=== PATIENT | male | born 1955 | race Caucasian/White ===

== ENCOUNTER 2021-06-15 06:14 | Day surgery (SDC) | payer MEDICARE ==
[2021-06-15] MEDS ORDERED: Lactated Ringers 1,000 ML IV SCH (06:30)
[2021-06-15] MEDS ORDERED: Lactated Ringers 1,000 ML IV ONE (07:03)
[2021-06-15] MEDS ORDERED: DIPRIVAN 200 MG/20 ML IV ONE ×2 (07:57→08:18)
[2021-06-15] MEDS ORDERED: Xylocaine-Mpf 2% 5 Ml Vial ONE (07:57)
[2021-06-15] MEDS ORDERED: Versed 2 MG/2 ML Injection ONE (08:01)
--- NOTE | 2021-06-15 09:05 | OP ---
SURGERY DATE/TIME: 06/15/2021 0800 PREOPERATIVE DIAGNOSIS: History of colon polyp many years ago, colonoscopy was normal eight years ago. The patient is here now for surveillance examination. POSTOPERATIVE DIAGNOSIS: Small sigmoid colon polyp. PROCEDURE: Colonoscopy with hot snare polypectomy. SURGEON: Dr. Caceres. ANESTHESIA: Medications given by anesthesia department. HISTORY: The patient is a 65-year-old white male patient now presenting for repeat evaluation. He had one previous polyp years ago. He has since that time had a normal colonoscopy eight years ago. The patient is felt the need to have endoscopic evaluation. Consent was obtained. DESCRIPTION OF PROCEDURE: He was placed in left lateral decubitus position. Digital rectal examination was performed and revealed normal anal sphincter tone, no masses and normal prostate. The flexible Olympus pediatric colonoscope was used to intubate the rectum. A view of the colon was developed sequentially to the cecum. In the sigmoid colon there was noted to be a polyp approximately 1 cm in size which was removed using hot polypectomy snare and retrieved for pathologic evaluation. No other mucosal lesions were encountered. The scope was removed from the patient who tolerated the procedure well and was sent back to OP recovery in good condition. The prep was noted to be good.
[2021-06-15 09:30] VITALS: O2SAT 97
[2021-06-15 09:33] VITALS: BP 130/78; PULSE 62
== END 2021-06-15 09:30 | disposition home or self-care (01) ==
LOC: SDC 06:14
PROVIDERS: ATTEND Family Medicine
DX: Z12.11 Encounter for screening for malignant neoplasm of colon (principal); Z09 Encounter for follow-up examination after completed treatment for conditions other than malignant neoplasm; Z86.010 Personal history of colon polyps; D12.5 Benign neoplasm of sigmoid colon
CPT/HCPCS: J2250; J2704

== ENCOUNTER 2022-05-09 11:22 | Emergency (ER) | payer MEDICARE ==
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
--- NOTE | 2022-05-09 12:11 | XRAY ---
Indication: Cough. Comparison: January 10, 2011 Portable chest again demonstrates normal heart and lungs. Bony thorax intact with mild degenerative changes. No new/acute findings.
[2022-05-09 12:40] LABS: Absolute Neutrophil Ct (ANC) 6.88 x10^3/uL (1.4-6.9); BASOPHIL % 0.3 % (0.0-0.4); Basophil (Absolute #) 0.03 x10^3/uL (0-0.4); Eosinophil (Absolute #) 0.09 x10^3/uL (0-0.5); Hematocrit 41.3 % (42-50); Hemoglobin 13.8 g/dL (12.5-18.0); IMMATURE GRAN # 0.05 x10^3u/L (0.00-0.03); IMMATURE GRAN % 0.6 % (0.00-0.4); Lymphocyte (Absolute #) 1.31 x10^3/uL (1.0-4.6); Lymphocytes % 14.5 % (24.0-44.0); Mean Cell Volume 83.1 fL (78-100); Mean Corpuscular Hemoglobin 27.8 pg (26-32); Mean Corpuscular Hgb Concent. 33.4 g/dL (32-36); Mean Platelet Volume 9.7 fL (7.5-11.0); Monocyte (Absolute #) 0.69 x10^3/uL (0.0-1.3); Monocytes % 7.6 % (0.0-12.0); Platelet Count 255 x10^3/uL (150-450); Red Blood Count 4.97 x10^6/uL (4.1-5.6); Red Cell Distribution Width 13.2 % (11.5-14.0); White Blood Count 9.1 x10^3/uL (4.0-10.5)
[2022-05-09 12:52] LABS: Group A Strep NOT DETECTED (NEGATIVE)
[2022-05-09 12:56] LABS: ALBUMIN 4.3 g/dL (3.5-5.0); ANION GAP 12.6 MEQ/L (5-15); BILIRUBIN,TOTAL 0.6 mg/dL (0.2-1.3); Calcium 8.9 mg/dL (8.4-10.2); Creatinine 1 1.84 mg/dL (0.66-1.25); EST GLOMERULAR FILTRATION RATE 39.3 ML/MIN; Potassium 4.1 mmol/L (3.5-5.1); Total Protein 7.9 g/dL (6.3-8.2)
[2022-05-09 13:05] LABS: INFLUENZA A NEGATIVE (NEGATIVE); INFLUENZA B NEGATIVE (NEGATIVE); RESPIRATORY SYNCTIAL VIRUS NEGATIVE (Negative); SARS-CoV-2 Xpert Express NEGATIVE (NEGATIVE)
[2022-05-09] MEDS ORDERED: Sodium Chloride 0.9% 500 ML 500 ML IV ONE (13:10)
[2022-05-09 14:19] VITALS: BP 136/66; PULSE 62; O2SAT 95
== END 2022-05-09 15:12 | disposition left against medical advice (07) ==
LOC: ED 11:22
DX: J06.9 Acute upper respiratory infection, unspecified (principal); R05.1 Acute cough; R07.9 Chest pain, unspecified; I10 Essential (primary) hypertension; E78.5 Hyperlipidemia, unspecified; J44.9 Chronic obstructive pulmonary disease, unspecified; Z79.52 Long term (current) use of systemic steroids; Z79.899 Other long term (current) drug therapy; Z72.0 Tobacco use
CPT/HCPCS: 0241U; 36415; 71045; 80053; 84484; 85025; 85379; 87651; 93005; 99284

== ENCOUNTER 2025-01-03 19:33 | Emergency (ER) | payer MEDICARE ==
[2025-01-03 19:45] VITALS: TEMP 97.9
[2025-01-03] MEDS ORDERED: Sensorcaine 0.25% 10 ML ONE (19:54)
[2025-01-03] MEDS ORDERED: XYLOCAINE 1% HCL 20 ML MDV ONE (19:54)
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
[2025-01-03] MEDS: Sensorcaine 0.25% 10 ML IJ ONE (19:56)
[2025-01-03] MEDS: XYLOCAINE 1% HCL 20 ML MDV IJ ONE (19:56)
[2025-01-03] MEDS ORDERED: BACIGUENT PACKET ONE (20:53)
[2025-01-03] MEDS: BACIGUENT PACKET TP STA (20:54)
[2025-01-03 21:00] VITALS: O2SAT 100
[2025-01-03] MEDS ORDERED: KEFLEX 500 MG ONE (21:03)
[2025-01-03] MEDS: KEFLEX 500 MG PO ONE (21:04)
[2025-01-03 21:13] VITALS: BP 142/82; PULSE 70; RESP 14
--- NOTE | 2025-01-04 07:42 | XRAY ---
Indication: Great toe injury. Comparison: None 3 nonweightbearing views right foot demonstrates nondisplaced comminuted fracture base distal 1st phalanx with intra-articular extension with soft tissue swelling and overlying bandage material. Elsewhere osteopenia and tiny spurring posterior calcaneus/base 5th metatarsal.
== END 2025-01-03 21:30 | disposition home or self-care (01) ==
LOC: ED 19:33
DX: S92.421B Displaced fracture of distal phalanx of right great toe, initial encounter for open fracture (principal); W18.40XA Slipping, tripping and stumbling without falling, unspecified, initial encounter; I10 Essential (primary) hypertension; Z79.84 Long term (current) use of oral hypoglycemic drugs; Z79.899 Other long term (current) drug therapy; Z79.891 Long term (current) use of opiate analgesic